=== PATIENT | female | born 1990 ===

== ENCOUNTER 2018-08-19 23:41 | Inpatient (IN) | payer OTHER ==
[2018-08-20] MEDS ORDERED: Ondansetron 4 MG/2 ML SDV IV PRN (00:10)
[2018-08-20] MEDS ORDERED: Sodium Chloride 0.9% 2.5 ML Syringe FLUSH PRN (00:10)
[2018-08-20] MEDS ORDERED: Sodium Chloride 0.9% 10 ML Syringe FLUSH PRN (00:10)
[2018-08-20] MEDS ORDERED: Sodium Chloride 0.9% 10 ML SDV IV PRN (00:10)
[2018-08-20] MEDS ORDERED: Lidocaine 1% 50 ML MDV INJECT PRN (00:10)
[2018-08-20] MEDS ORDERED: Misoprostol 200 MCG Tab PO PRN (00:10)
[2018-08-20] MEDS ORDERED: Tranexamic Acid 1,000 MG in Sodium Chloride 0.9% 100 ML IV PRN (00:10)
[2018-08-20] MEDS ORDERED: Butorphanol 1 MG/ML SDV IVPUSH PRN (00:10)
[2018-08-20] MEDS ORDERED: Water For Irrigation,Sterile 1,000 ML Container IRR PRN (00:10)
[2018-08-20] MEDS ORDERED: Nalbuphine 10 MG/1 ML Vial IVPUSH PRN (00:10)
[2018-08-20] MEDS ORDERED: Methylergonovine 0.2 MG/1 ML Amp IM PRN (00:10)
[2018-08-20] MEDS ORDERED: Carboprost Tromethamine 250 MCG/1 ML Amp IM PRN (00:10)
[2018-08-20] MEDS ORDERED: Oxytocin/0.9 % Sodium Chloride 30 UNIT/500 ML BAG IV SCH ×2 (00:15→08:15)
--- NOTE | 2018-08-20 08:06 | PCM.LDHP ---
L&D History of Present Illness - General Date of Service: 08/20/18 Admit Problem/Dx: Patient Status Order with Admit Dx/Problem 08/20/18 00:40 Patient Status [ADT] Routine Admission Diagnosis/Problem Admission Diagnosis/Problem 08/20/18 08:01 27yo 09/29/2018 38 5/7wks Comes due to SROM on 08/19/2018 @2100. A+, RI, GBS neg. Source of Information: Patient History Limitations: Reports: No Limitations - History of Present Illness Timing/Duration: Reports: minutes: Location, : Reports: Abdomen Quality: Reports: Ache, Throbbing Severity: Moderate Improves with: Reports: None Worsens with: Reports: None Associated Symptoms: Reports: N - Related Data Allergies/Adverse Reactions: Allergies Allergy/AdvReac Type Severity Reaction Status Date / Time No Known Allergies Allergy Verified 08/20/18 00:09 Home Medications: Home Meds PNV95/Ferrous Fumarate/FA [ Tablet] 1 tab PO DAILY 08/20/18 [History] Sertraline HCl 150 mg PO DAILY 08/20/18 [History] Past Medical History HEENT History: Reports: Impaired Vision Gastrointestinal History: Reports: None 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: Musculoskeletal History: Reports: None Psychiatric History: Reports: Depression - Past Surgical History HEENT Surgical History: Reports: Adenoidectomy, Tonsillectomy GI Surgical History: Reports: Cholecystectomy Musculoskeletal Surgical History: Reports: Arthroscopic Procedure Social & Family History - Family History Cardiac: Reports: Hypertension OBGYN: Reports: Oncologic: Reports: Skin - Tobacco Use Smoking Status *Q: Never Smoker - Caffeine Use Caffeine Use: Reports: None - Recreational Drug Use Recreational Drug Use: No H&P Review of Systems - Review of Systems: Review Of Systems: See Below General: Reports: No Symptoms HEENT: Reports: No Symptoms Pulmonary: Reports: No Symptoms Cardiovascular: Reports: No Symptoms Gastrointestinal: Reports: No Symptoms Genitourinary: Reports: No Symptoms Musculoskeletal: Reports: No Symptoms Skin: Reports: No Symptoms Psychiatric: Reports: No Symptoms Neurological: Reports: No Symptoms Hematologic/Lymphatic: Reports: No Symptoms Immunologic: Reports: No Symptoms L&D Exam - Exam Exam: See Below - Vital Signs Weight: 132.903 kg - OB Specific Contraction Intensity: Moderate Movement: Active Heart Tones: Present Heart Tones per Min: 145 Heart Rate (FHR) Variability: Moderate (6-25 bmp) Presentation: Vertex - Kaba Score Kaba Score Cervix Position: Midposition Kaba Score Consistency: Soft Kaba Score Effacement: >80% Kaba Score Dilation: 3-4 cm Kaba Score Infant's Station: -2 Kaba Score Total: 9 - Exam General: Alert, Oriented, Cooperative HEENT: Hearing Intact Lungs: Normal Respiratory Effort GI/Abdominal Exam: Soft, Non-Tender Rectal Exam: Deferred Genitourinary: Normal external exam, Normal bimanual exam, Cervical dilitation, Cervical fluid Back Exam: Normal Inspection Extremities: Normal Inspection, Normal Range of Motion, Non-Tender, No Pedal Edema Skin: Warm, Dry, Intact Neurological: Cranial Nerves Intact, Reflexes Equal Bilateral, Strength Equal Bilateral, Normal Gait, Normal Speech, Normal Tone, Sensation Intact Psychiatric: Alert, Normal Affect, Normal Mood - Patient Data Lab Results Last 24 hrs: Laboratory Results - last 24 hr 08/19/18 08/20/18 08/20/18 Range/Units 23:30 00:20 00:20 WBC 9.33 (4.0-11.0) K/uL RBC 3.91 L (4.30-5.90) M/uL Hgb 11.4 L (12.0-16.0) g/dL Hct 33.8 L (36.0-46.0) % MCV 86.4 (80.0-98.0) fL MCH 29.2 (27.0-32.0) pg MCHC 33.7 (31.0-37.0) g/dL RDW Std Deviation 43.7 (28.0-62.0) fl RDW Coeff of Joslyn 14 (11.0-15.0) % Plt Count 206 (150-400) K/uL MPV 10.40 (7.40-12.00) fL Membrane Rupture POSITIVE Blood Type A POSITIVE Antibody Screen NEGATIVE Result Diagrams: 08/20/18 00:20 - Problem List (1) Supervision of normal IUP (intrauterine ) in multigravida SNOMED Code(s): 927213867, 407539485, 453607918 ICD Code: Z34.80 - ENCOUNTER FOR SUPRVSN OF NORMAL , UNSP TRIMESTER Status: Acute Priority: High Current Visit: Yes Qualifiers: Trimester: third trimester Qualified Code(s): Z34.83 - Encounter for supervision of other normal , third trimester (2) SROM (spontaneous rupture of membranes) SNOMED Code(s): 983235881 ICD Code: [id number] - Status: Acute Priority: High Current Visit: Yes Problem List Initiated/Reviewed/Updated: Yes Orders Last 24hrs: Active Orders 24 hr Category Date Time Status Patient Status [ADT] Routine ADT 08/20/18 00:40 Active May Shower [RC] ASDIRECTED Care 08/20/18 00:40 Active Notify Provider [RC] PRN Care 08/20/18 00:40 Active Up ad Racheal [RC] ASDIRECTED Care 08/20/18 00:40 Active Vital Signs [RC] PER UNIT ROUTINE Care 08/20/18 00:40 Active Butorphanol [Stadol] Med 08/20/18 00:10 Active 1 mg IVPUSH Q1H PRN Carboprost Tromethamine [Hemabate DS] Med 08/20/18 00:10 Active 250 mcg IM ASDIRECTED PRN Lactated Ringers [Ringers, Lactated] 1,000 ml Med 08/20/18 00:15 Active IV ASDIRECTED Lidocaine 1% [Xylocaine 1%] Med 08/20/18 00:10 Active 50 ml INJECT ONETIME PRN Methylergonovine [Methergine] Med 08/20/18 00:10 Active 0.2 mg IM ASDIRECTED PRN Nalbuphine [Nubain] Med 08/20/18 00:10 Active 10 mg IVPUSH Q1H PRN Ondansetron [Zofran] Med 08/20/18 00:10 Active 4 mg IV Q6H PRN Oxytocin/0.9 % Sodium Chloride [Oxytocin 30 Unit/500 ML Med 08/20/18 00:15 Active -NS] 30 unit in 500 ml IV TITRATE Sodium Chloride 0.9% [Normal Saline] Med 08/20/18 00:10 Active 10 ml IV ASDIRECTED PRN Sodium Chloride 0.9% [Saline Flush] Med 08/20/18 00:10 Active 10 ml FLUSH ASDIRECTED PRN Sodium Chloride 0.9% [Saline Flush] Med 08/20/18 00:10 Active 2.5 ml FLUSH ASDIRECTED PRN Tranexamic Acid [Cyklokapron] 1,000 mg Med 08/20/18 00:10 Active Sodium Chloride 0.9% [Normal Saline] 100 ml IV ONETIME Water For Irrigation,Sterile [Sterile Water for Med 08/20/18 00:10 Active Irrigation] 1,000 ml IRR ASDIRECTED PRN miSOPROStol [Cytotec] Med 08/20/18 00:10 Active 200 mcg PO ONETIME PRN Scalp Electrode [WOMSER] Per Unit Routine Oth 08/20/18 00:40 Ordered Peripheral IV Insertion Adult [OM.PC] Routine Oth 08/20/18 00:40 Ordered Resuscitation Status Routine Resus Stat 08/20/18 00:10 Ordered Medication Orders Butorphanol Tartrate (Stadol) 1 mg IVPUSH Q1H PRN PRN Reason: Pain Carboprost Tromethamine (Hemabate Ds) 250 mcg IM ASDIRECTED PRN PRN Reason: Post Hemorrhage Lactated Ringer's (Ringers, Lactated) 1,000 mls @ 150 mls/hr IV ASDIRECTED NORM Oxytocin/Sodium Chloride (Oxytocin 30 Unit/500 Ml-Ns) 30 unit in 500 mls @ 999 mls/hr IV TITRATE NORM Tranexamic Acid 1,000 mg/ (Sodium Chloride) 110 mls @ 660 mls/hr IV ONETIME PRN PRN Reason: Bleeding Lidocaine HCl (Xylocaine 1%) 50 ml INJECT ONETIME PRN PRN Reason: Laceration repair Methylergonovine Maleate (Methergine) 0.2 mg IM ASDIRECTED PRN PRN Reason: Post Hemorrhage Misoprostol (Cytotec) 200 mcg PO ONETIME PRN PRN Reason: Post Hemorrhage Nalbuphine HCl (Nubain) 10 mg IVPUSH Q1H PRN PRN Reason: Pain (severe 7-10) Ondansetron HCl (Zofran) 4 mg IV Q6H PRN PRN Reason: Nausea/Vomiting Sodium Chloride (Saline Flush) 10 ml FLUSH ASDIRECTED PRN PRN Reason: Keep Vein Open Sodium Chloride (Saline Flush) 2.5 ml FLUSH ASDIRECTED PRN PRN Reason: Keep Vein Open Sodium Chloride (Normal Saline) 10 ml IV ASDIRECTED PRN PRN Reason: IV Use Sterile Water (Sterile Water For Irrigation) 1,000 ml IRR ASDIRECTED PRN PRN Reason: delivery Assessment/Plan Comment:: Labor/SROM A: 27yo 09/29/2018 38 5/7wks Comes due to SROM on 08/19/2018 @2100. A+, RI , GBS neg. P: Admit, epidural prn, anticipate , Dr Sousa updated
[2018-08-20] MEDS ORDERED: Terbutaline 1 MG/ML SDV SUBCUT PRN (08:07)
[2018-08-20] MEDS: Lactated Ringers 1,000 ML IV SCH ×4 (08:30→14:31)
--- NOTE | 2018-08-20 12:03 | PCM.PREANE ---
Preanesthetic Assessment - Anesthesia/Transfusion/Family Hx Anesthesia History: Prior Anesthesia Without Reaction Family History of Anesthesia Reaction: No Transfusion History: No Prior Transfusion(s) - Review of Systems General: No Symptoms Pulmonary: No Symptoms Cardiovascular: No Symptoms Gastrointestinal: No Symptoms Neurological: No Symptoms Other: Reports: None - Physical Assessment NPO Status Date: 08/20/18 NPO Status Time: 08:00 Height: 6 ft Weight: 132.903 kg ASA Class: 2E Mental Status: Alert & Oriented x3 Airway Class: Mallampati = 1 Dentition: Reports: Normal Dentition Thyro-Mental Finger Breadths: 3 ROM/Head Extension: Full Lungs: Clear to Auscultation, Normal Respiratory Effort Cardiovascular: Regular Rate - Lab Values: Laboratory Last Values WBC 9.33 K/uL (4.0-11.0) 08/20/18 00:20 RBC 3.91 M/uL (4.30-5.90) L 08/20/18 00:20 Hgb 11.4 g/dL (12.0-16.0) L 08/20/18 00:20 Hct 33.8 % (36.0-46.0) L 08/20/18 00:20 MCV 86.4 fL (80.0-98.0) 08/20/18 00:20 MCH 29.2 pg (27.0-32.0) 08/20/18 00:20 MCHC 33.7 g/dL (31.0-37.0) 08/20/18 00:20 RDW Std Deviation 43.7 fl (28.0-62.0) 08/20/18 00:20 RDW Coeff of Joslyn 14 % (11.0-15.0) 08/20/18 00:20 Plt Count 206 K/uL (150-400) 08/20/18 00:20 MPV 10.40 fL (7.40-12.00) 08/20/18 00:20 Membrane Rupture POSITIVE 08/19/18 23:30 Blood Type A POSITIVE 08/20/18 00:20 Antibody Screen NEGATIVE 08/20/18 00:20 - Allergies Allergies/Adverse Reactions: Allergies Allergy/AdvReac Type Severity Reaction Status Date / Time No Known Allergies Allergy Verified 08/20/18 00:09 - Acknowledgements Anesthesia Type Planned: Epidural Pt an Appropriate Candidate for the Planned Anesthesia: Yes Alternatives and Risks of Anesthesia Discussed w Pt/Guardian: Yes Pt/Guardian Understands and Agrees with Anesthesia Plan: Yes PreAnesthesia Questionnaire HEENT History: Reports: Impaired Vision Gastrointestinal History: Reports: None 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: Musculoskeletal History: Reports: None Psychiatric History: Reports: Depression - Past Surgical History HEENT Surgical History: Reports: Adenoidectomy, Tonsillectomy GI Surgical History: Reports: Cholecystectomy Musculoskeletal Surgical History: Reports: Arthroscopic Procedure - SUBSTANCE USE Smoking Status *Q: Never Smoker Recreational Drug Use History: No - HOME MEDS Home Medications: Home Meds PNV95/Ferrous Fumarate/FA [ Tablet] 1 tab PO DAILY 08/20/18 [History] Sertraline HCl 150 mg PO DAILY 08/20/18 [History] - CURRENT (IN HOUSE) MEDS Current Meds: Current Medications Butorphanol Tartrate (Stadol) 1 mg IVPUSH Q1H PRN PRN Reason: Pain Carboprost Tromethamine (Hemabate Ds) 250 mcg IM ASDIRECTED PRN PRN Reason: Post Hemorrhage Lactated Ringer's (Ringers, Lactated) 1,000 mls @ 150 mls/hr IV ASDIRECTED NORM Last Admin: 08/20/18 12:00 Dose: 500 mls/hr Oxytocin/Sodium Chloride (Oxytocin 30 Unit/500 Ml-Ns) 30 unit in 500 mls @ 999 mls/hr IV TITRATE NORM Tranexamic Acid 1,000 mg/ (Sodium Chloride) 110 mls @ 660 mls/hr IV ONETIME PRN PRN Reason: Bleeding Oxytocin/Sodium Chloride (Oxytocin 30 Unit/500 Ml-Ns) 30 unit in 500 mls @ 2 mls/hr IV TITRATE NORM; Protocol Last Admin: 08/20/18 08:40 Dose: 2 munits/min, 2 mls/hr Lidocaine HCl (Xylocaine 1%) 50 ml INJECT ONETIME PRN PRN Reason: Laceration repair Methylergonovine Maleate (Methergine) 0.2 mg IM ASDIRECTED PRN PRN Reason: Post Hemorrhage Misoprostol (Cytotec) 200 mcg PO ONETIME PRN PRN Reason: Post Hemorrhage Nalbuphine HCl (Nubain) 10 mg IVPUSH Q1H PRN PRN Reason: Pain (severe 7-10) Ondansetron HCl (Zofran) 4 mg IV Q6H PRN PRN Reason: Nausea/Vomiting Sodium Chloride (Saline Flush) 10 ml FLUSH ASDIRECTED PRN PRN Reason: Keep Vein Open Sodium Chloride (Saline Flush) 2.5 ml FLUSH ASDIRECTED PRN PRN Reason: Keep Vein Open Sodium Chloride (Normal Saline) 10 ml IV ASDIRECTED PRN PRN Reason: IV Use Sterile Water (Sterile Water For Irrigation) 1,000 ml IRR ASDIRECTED PRN PRN Reason: delivery Terbutaline Sulfate (Brethine) 0.25 mg SUBCUT ASDIRECTED PRN PRN Reason: Tacysystole Discontinued Medications Fentanyl/Bupivacaine HCl (Umibmglc-Jsrlc-Zu 2 Mcg/Ml-0.125%) Confirm Administered Dose 100 mls @ as directed .ROUTE .[facility] ONE Stop: 08/20/18 11:34
[2018-08-20] MEDS ORDERED: fentaNYL 100 MCG/2 ML SDV ONE (12:43)
[2018-08-20] MEDS ORDERED: Bupivacaine 0.5% 10 ML SDV ONE (12:43)
--- NOTE | 2018-08-20 13:10 | PCM.SN ---
- Free Text/Narrative Note: Anesthesia Note: [id number] Pt states that pain is "a high number" on her left side. She has been positioned with her left side down approx 5 min prior. She states her right side is completely numb, but that she can feel everything on her left. Pt speaks normally thru contractions. 3 mL of 0.5% Bupiv and 100 mcg Fent given via Epidural cath. Will wait 15 min and reevaluate. Upon reevaluation, pt states "there's really no difference." However, pt is sitting with a smile on her face thru contractions. When this is pointed out to her she then keeps comparing it to her "very numb" R leg and then begins to understand we do not want it to be that numb, we just want her to be free from pain, which she now states she is. Increased epidural rate to 11 mL/hr and bolus to 10ml q 15 min. Pt educated and verbalizes understanding.
[2018-08-20] MEDS ORDERED: Benzocaine/Menthol 20%-0.5% Spray 78 GM Cannister TOP PRN (16:59)
[2018-08-20] MEDS ORDERED: oxyCODONE 5 MG Tab PO PRN (16:59)
[2018-08-20] MEDS ORDERED: Witch Hazel Medicated Pads 40/Jar TOP PRN (16:59)
[2018-08-20] MEDS ORDERED: Acetaminophen 500 MG Tab PO PRN ×2 (16:59)
[2018-08-20] MEDS ORDERED: Lanolin 100% Cream 7 GM Tube TOP PRN (16:59)
[2018-08-20] MEDS ORDERED: Docusate Sodium 100 MG Cap PO PRN (16:59)
[2018-08-20] MEDS ORDERED: Bisacodyl 10 MG Supp RECTAL PRN (16:59)
[2018-08-20] MEDS ORDERED: Ibuprofen 400 MG Tab PO PRN (16:59)
--- NOTE | 2018-08-20 17:06 | PCM.DEL ---
L & D Note - General Info Date of Service: 08/20/18 Mother's Due Date: 09/29/18 - Delivery Note Labor: Spontaneous, Augmented by Oxytocin Delivery Outcome: Livebirth Infant Delivery Method: Spontaneous Vaginal Delivery-Single Infant Delivery Mode: Spontaneous Presentation: Vertex Nuchal Cord: Present Anesthesia Type: Epidural Episiotomy Type: None Laceration: 1st Degree, Vaginal Suture type: Vicryl Suture size: 3-0 Placenta: Intact, Spontaneous Cord: 3 Vessels Estimated Blood Loss: 100 Resuscitation Needed: No [place]: Stimulated Score 1 min: 8 Score 5 min: 9 Second Stage Interventions: Reports: Pushing, Pulls Own Legs Back Delivery Comments (Free Text/Narrative):: of viable female, Head delivered with good pushing, nuchal x1 reduced over head, shoulders and body followed easily. to mothers abd with spon cry, RN at for evaluation. Delayed cord clamping. Pitocin to IVF. Cord clamped and cut by FOB. Cord blood collected. Placenta delivered grossly intact, 3VC. Inspection noted 1st deg vaginal lac that was repaired with 3-0 chaparrita in the usual manor. EBL 100cc. APGARS 8/9, Wt: 6lb 13oz. MOther and baby left in stable condition for recovery. Induction Criteria - Augmentation Estimated Pelvis: Reports: Adequate Weight Estimated:: Reports: AGA Reassuring Monitoring Strip: Yes Absence of Tachy Systole: Yes - General Info Date of Service: 08/20/18 Admission Dx/Problem (Free Text): Patient Status Order with Admit Dx/Problem 08/20/18 00:40 Patient Status [ADT] Routine Admission Diagnosis/Problem Admission Diagnosis/Problem 08/20/18 08:01 27yo 09/29/2018 38 5/7wks Comes due to SROM on 08/19/2018 @2100. A+, RI, GBS neg. Functional Status: Reports: Pain Controlled - Review of Systems General: Reports: No Symptoms HEENT: Reports: No Symptoms Pulmonary: Reports: No Symptoms Cardiovascular: Reports: No Symptoms Gastrointestinal: Reports: No Symptoms Genitourinary: Reports: No Symptoms Musculoskeletal: Reports: No Symptoms Skin: Reports: No Symptoms Neurological: Reports: No Symptoms Psychiatric: Reports: No Symptoms - Patient Data Weight - Most Recent: 132.903 kg I&O - Last 24 Hours: Intake & Output 08/20/18 08/20/18 08/20/18 06:59 14:59 22:59 Output Total 1180 Balance -1180 Lab Results Last 24 Hours: Laboratory Results - last 24 hr 08/19/18 08/20/18 08/20/18 Range/Units 23:30 00:20 00:20 WBC 9.33 (4.0-11.0) K/uL RBC 3.91 L (4.30-5.90) M/uL Hgb 11.4 L (12.0-16.0) g/dL Hct 33.8 L (36.0-46.0) % MCV 86.4 (80.0-98.0) fL MCH 29.2 (27.0-32.0) pg MCHC 33.7 (31.0-37.0) g/dL RDW Std Deviation 43.7 (28.0-62.0) fl RDW Coeff of Joslyn 14 (11.0-15.0) % Plt Count 206 (150-400) K/uL MPV 10.40 (7.40-12.00) fL Membrane Rupture POSITIVE Blood Type A POSITIVE Antibody Screen NEGATIVE Med Orders - Current: Current Medications Acetaminophen (Tylenol Extra Strength) 500 mg PO Q4H PRN PRN Reason: Pain Acetaminophen (Tylenol Extra Strength) 1,000 mg PO Q4H PRN PRN Reason: Pain Benzocaine/Menthol (Dermoplast Pain Relief 20%-0.5% Max) 78 gm TOP ASDIRECTED PRN PRN Reason: Perineal Comfort Measure Bisacodyl (Dulcolax) 10 mg RECTAL ONETIME PRN PRN Reason: Constipation Docusate Sodium (Colace) 100 mg PO BID PRN PRN Reason: Constipation Emollient Ointment (Lansinoh Hpa) 0 gm TOP ASDIRECTED PRN PRN Reason: Sore Nipples Ibuprofen (Motrin) 400 mg PO Q4H PRN PRN Reason: Pain Ibuprofen (Motrin) 800 mg PO Q6H PRN PRN Reason: Pain Oxycodone HCl (Oxycodone) 5 mg PO Q2H PRN PRN Reason: Pain Witch Sudha (Tucks) 1 pad TOP ASDIRECTED PRN PRN Reason: comfort care Discontinued Medications Bupivacaine HCl (Sensorcaine-Mpf 0.5%) Confirm Administered Dose 10 ml .ROUTE .[facility] ONE Stop: 08/20/18 12:44 Butorphanol Tartrate (Stadol) 1 mg IVPUSH Q1H PRN PRN Reason: Pain Carboprost Tromethamine (Hemabate Ds) 250 mcg IM ASDIRECTED PRN PRN Reason: Post Hemorrhage Fentanyl (Sublimaze) Confirm Administered Dose 100 mcg .ROUTE .[facility] ONE Stop: 08/20/18 12:44 Lactated Ringer's (Ringers, Lactated) 1,000 mls @ 150 mls/hr IV ASDIRECTED NORM Last Admin: 08/20/18 14:31 Dose: 150 mls/hr Oxytocin/Sodium Chloride (Oxytocin 30 Unit/500 Ml-Ns) 30 unit in 500 mls @ 999 mls/hr IV TITRATE NORM Tranexamic Acid 1,000 mg/ (Sodium Chloride) 110 mls @ 660 mls/hr IV ONETIME PRN PRN Reason: Bleeding Oxytocin/Sodium Chloride (Oxytocin 30 Unit/500 Ml-Ns) 30 unit in 500 mls @ 2 mls/hr IV TITRATE [facility]; Protocol Last Titration: 08/20/18 13:11 Dose: 8 munits/min, 8 mls/hr Fentanyl/Bupivacaine HCl (Umxwmohj-Ntzpo-Hx 2 Mcg/Ml-0.125%) Confirm Administered Dose 100 mls @ as directed .ROUTE .[facility] ONE Stop: 08/20/18 11:34 Lidocaine HCl (Xylocaine 1%) 50 ml INJECT ONETIME PRN PRN Reason: Laceration repair Methylergonovine Maleate (Methergine) 0.2 mg IM ASDIRECTED PRN PRN Reason: Post Hemorrhage Misoprostol (Cytotec) 200 mcg PO ONETIME PRN PRN Reason: Post Hemorrhage Nalbuphine HCl (Nubain) 10 mg IVPUSH Q1H PRN PRN Reason: Pain (severe 7-10) Ondansetron HCl (Zofran) 4 mg IV Q6H PRN PRN Reason: Nausea/Vomiting Sodium Chloride (Saline Flush) 10 ml FLUSH ASDIRECTED PRN PRN Reason: Keep Vein Open Sodium Chloride (Saline Flush) 2.5 ml FLUSH ASDIRECTED PRN PRN Reason: Keep Vein Open Sodium Chloride (Normal Saline) 10 ml IV ASDIRECTED PRN PRN Reason: IV Use Sterile Water (Sterile Water For Irrigation) 1,000 ml IRR ASDIRECTED PRN PRN Reason: delivery Terbutaline Sulfate (Brethine) 0.25 mg SUBCUT ASDIRECTED PRN PRN Reason: Tacysystole - Exam General: Alert, Oriented, Cooperative Lungs: Normal Respiratory Effort GI/Abdominal Exam: Soft, Non-Tender (Female) Exam: Normal External Exam, Normal Bimanual Exam, Vaginal Bleeding Back Exam: Normal Inspection Extremities: Normal Inspection, No Pedal Edema Skin: Warm, Dry, Intact Wound/Incisions: Healing Well Neurological: No New Focal Deficit, Normal Speech, Normal Tone Psy/Mental Status: Alert, Normal Affect, Normal Mood - Problem List & Annotations (1) Supervision of normal IUP (intrauterine ) in multigravida SNOMED Code(s): 828672725, 333351225, 018904486 Code(s): Z34.80 - ENCOUNTER FOR SUPRVSN OF NORMAL , UNSP TRIMESTER Status: Acute Priority: High Current Visit: Yes Qualifiers: Trimester: third trimester Qualified Code(s): Z34.83 - Encounter for supervision of other normal , third trimester (2) SROM (spontaneous rupture of membranes) SNOMED Code(s): 606191119 Code(s): EHQ7358 - Status: Acute Priority: High Current Visit: Yes (3) (normal spontaneous vaginal delivery) SNOMED Code(s): 94731011 Code(s): O80 - ENCOUNTER FOR FULL-TERM UNCOMPLICATED DELIVERY Status: Acute Priority: High Current Visit: Yes - Problem List Review Problem List Initiated/Reviewed/Updated: Yes - My Orders Last 24 Hours: My Active Orders 08/20/18 08:08 Bedrest Bathroom Privileges [RC] ASDIRECTED Communication Order [RC] ASDIRECTED Communication Order [RC] ASDIRECTED Notify Provider [RC] PRN Notify Provider [RC] STAT Oxygen Therapy [RC] ASDIRECTED Vaginal Exam [RC] PRN Vital Signs [RC] PER UNIT ROUTINE 08/20/18 13:38 Ready for Discharge [RC] PER UNIT ROUTINE 08/20/18 16:59 Acetaminophen [Tylenol Extra Strength] 1,000 mg PO Q4H PRN Acetaminophen [Tylenol Extra Strength] 500 mg PO Q4H PRN Benzocaine/Menthol [Dermoplast Pain Relief 20%-0.5% Max] 78 gm TOP ASDIRECTED PRN Bisacodyl [Dulcolax] 10 mg RECTAL ONETIME PRN Docusate Sodium [Colace] 100 mg PO BID PRN Ibuprofen [Motrin] 400 mg PO Q4H PRN Ibuprofen [Motrin] 800 mg PO Q6H PRN Lanolin [Lansinoh HPA] See Dose Instructions TOP ASDIRECTED PRN Witch Sudha [Tucks] 1 pad TOP ASDIRECTED PRN oxyCODONE 5 mg PO Q2H PRN Resuscitation Status Routine 08/20/18 17:00 Patient Status [ADT] Routine May Shower [RC] ASDIRECTED Up ad Racheal [RC] ASDIRECTED Vital Signs [RC] PER UNIT ROUTINE Assess Lochia [WOMSER] Per Unit Routine Assess Uterine Involution [WOMSER] Per Unit Routine Peripheral IV Discontinue [OM.PC] Routine 08/20/18 Dinner Regular Diet [DIET] - Plan Plan:: Labor/SROM A: 27yo 09/29/2018 38 5/7wks Comes due to SROM on 08/19/2018 @2100. A+, RI , GBS neg. P: Admit, epidural prn, anticipate , Dr Sousa updated Delivery A: viable female, APGARS 8/9, Wt: 6lb 13oz. EBL 100cc. 1st deg lac w/ repair. mother and baby stable P: Routine pp plan of care
[2018-08-20] MEDS: Ibuprofen 800 MG Tab PO PRN (20:31)
[2018-08-21] MEDS: Ibuprofen 800 MG Tab PO PRN ×3 (05:10→19:21)
--- NOTE | 2018-08-21 05:38 | PCM48HPAN ---
Post Anesthesia Note - EVALUATION WITHIN 48HRS OF ANESTHETIC Vital Signs in Normal Range: Yes Patient Participated in Evaluation: Yes Respiratory Function Stable: Yes Airway Patent: Yes Cardiovascular Function Stable: Yes Hydration Status Stable: Yes Pain Control Satisfactory: Yes Nausea and Vomiting Control Satisfactory: Yes Mental Status Recovered: Yes Resp Rate: 16
--- NOTE | 2018-08-21 09:48 | PCM.PNPP ---
- General Info Date of Service: 08/21/18 Functional Status: Reports: Pain Controlled - Review of Systems General: Reports: No Symptoms HEENT: Reports: No Symptoms Pulmonary: Reports: No Symptoms Cardiovascular: Reports: No Symptoms Gastrointestinal: Reports: No Symptoms Genitourinary: Reports: No Symptoms Musculoskeletal: Reports: No Symptoms Skin: Reports: No Symptoms Neurological: Reports: No Symptoms Psychiatric: Reports: No Symptoms - General Info Date of Service: 08/21/18 - Patient Data Vital Signs - Most Recent: Last Vital Signs Temp 36.7 C 08/21/18 07:05 Pulse 70 08/21/18 07:05 Resp 16 08/21/18 07:05 BP 96/52 L 08/21/18 07:05 Pulse Ox 96 08/21/18 07:05 Weight - Most Recent: 132.903 kg I&O - Last 24 Hours: Intake & Output 08/20/18 08/21/18 08/21/18 22:59 06:59 14:59 Output Total 1180 Balance -1180 Med Orders - Current: Current Medications Acetaminophen (Tylenol Extra Strength) 500 mg PO Q4H PRN PRN Reason: Pain Acetaminophen (Tylenol Extra Strength) 1,000 mg PO Q4H PRN PRN Reason: Pain Benzocaine/Menthol (Dermoplast Pain Relief 20%-0.5% [place]) 78 gm TOP ASDIRECTED PRN PRN Reason: Perineal Comfort Measure Last Admin: 08/20/18 19:38 Dose: 1 applic Bisacodyl (Dulcolax) 10 mg RECTAL ONETIME PRN PRN Reason: Constipation Docusate Sodium (Colace) 100 mg PO BID PRN PRN Reason: Constipation Last Admin: 08/20/18 20:31 Dose: 100 mg Emollient Ointment (Lansinoh Hpa) 0 gm TOP ASDIRECTED PRN PRN Reason: Sore Nipples Last Admin: 08/20/18 19:39 Dose: 1 applic Ibuprofen (Motrin) 400 mg PO Q4H PRN PRN Reason: Pain Ibuprofen (Motrin) 800 mg PO Q6H PRN PRN Reason: Pain Last Admin: 08/21/18 05:10 Dose: 800 mg Oxycodone HCl (Oxycodone) 5 mg PO Q2H PRN PRN Reason: Pain Witch Sudha (Tucks) 1 pad TOP ASDIRECTED PRN PRN Reason: comfort care Last Admin: 08/20/18 19:38 Dose: 1 applicful Discontinued Medications Bupivacaine HCl (Sensorcaine-Mpf 0.5%) Confirm Administered Dose 10 ml .ROUTE .STK-MED ONE Stop: 08/20/18 12:44 Last Admin: 08/21/18 03:11 Dose: Not Given Butorphanol Tartrate (Stadol) 1 mg IVPUSH Q1H PRN PRN Reason: Pain Carboprost Tromethamine (Hemabate Ds) 250 mcg IM ASDIRECTED PRN PRN Reason: Post Hemorrhage Fentanyl (Sublimaze) Confirm Administered Dose 100 mcg .ROUTE .Confidex-MED ONE Stop: 08/20/18 12:44 Last Admin: 08/21/18 03:11 Dose: Not Given Lactated Ringer's (Ringers, Lactated) 1,000 mls @ 150 mls/hr IV ASDIRECTED NORM Last Admin: 08/20/18 14:31 Dose: 150 mls/hr Oxytocin/Sodium Chloride (Oxytocin 30 Unit/500 Ml-Ns) 30 unit in 500 mls @ 999 mls/hr IV TITRATE NORM Tranexamic Acid 1,000 mg/ (Sodium Chloride) 110 mls @ 660 mls/hr IV ONETIME PRN PRN Reason: Bleeding Oxytocin/Sodium Chloride (Oxytocin 30 Unit/500 Ml-Ns) 30 unit in 500 mls @ 2 mls/hr IV TITRATE NORM; Protocol Last Titration: 08/20/18 13:11 Dose: 8 munits/min, 8 mls/hr Fentanyl/Bupivacaine HCl (Vitwhkzq-Tquwy-Wz 2 Mcg/Ml-0.125%) Confirm Administered Dose 100 mls @ as directed .ROUTE .Confidex-MED ONE Stop: 08/20/18 11:34 Last Admin: 08/21/18 03:11 Dose: Not Given Lidocaine HCl (Xylocaine 1%) 50 ml INJECT ONETIME PRN PRN Reason: Laceration repair Methylergonovine Maleate (Methergine) 0.2 mg IM ASDIRECTED PRN PRN Reason: Post Hemorrhage Misoprostol (Cytotec) 200 mcg PO ONETIME PRN PRN Reason: Post Hemorrhage Nalbuphine HCl (Nubain) 10 mg IVPUSH Q1H PRN PRN Reason: Pain (severe 7-10) Ondansetron HCl (Zofran) 4 mg IV Q6H PRN PRN Reason: Nausea/Vomiting Sodium Chloride (Saline Flush) 10 ml FLUSH ASDIRECTED PRN PRN Reason: Keep Vein Open Sodium Chloride (Saline Flush) 2.5 ml FLUSH ASDIRECTED PRN PRN Reason: Keep Vein Open Sodium Chloride (Normal Saline) 10 ml IV ASDIRECTED PRN PRN Reason: IV Use Sterile Water (Sterile Water For Irrigation) 1,000 ml IRR ASDIRECTED PRN PRN Reason: delivery Terbutaline Sulfate (Brethine) 0.25 mg SUBCUT ASDIRECTED PRN PRN Reason: Tacysystole - Interaction Disposition, : in Room with Family Feeding: Attempted ; Nursed Fair/Poor Support Person: - Recovery Exam Fundal Tone: Firm Fundal Level: At Umbilicus Fundal Placement: Midline Lochia Amount: Small Lochia Color: Rubra/Red Perineum Description: Edematous Episiotomy/Laceration: Approximated Bladder Status: Voiding Urinary Elimination: Voided - Exam General: Alert, Oriented HEENT: Pupils Equal Neck: Supple Lungs: Clear to Auscultation, Normal Respiratory Effort Cardiovascular: Regular Rate, Regular Rhythm GI/Abdominal Exam: Normal Bowel Sounds, Soft, Non-Tender, No Organomegaly, No Distention, No Abnormal Bruit, No Mass, Pelvis Stable Extremities: Normal Inspection, Normal Range of Motion, Non-Tender, No Pedal Edema, Normal Capillary Refill Skin: Warm, Dry, Intact Wound/Incisions: Healing Well Neurological: No New Focal Deficit Psy/Mental Status: Alert, Normal Affect, Normal Mood - Problem List Review Problem List Initiated/Reviewed/Updated: Yes - Assessment Assessment:: Status post normal spontaneous vaginal delivery the patient is doing well she is attempting breast-feeding and we are planning to discharge her later during the day - Plan Plan:: Labor/SROM A: 27yo 09/29/2018 38 5/7wks Comes due to SROM on 08/19/2018 @2100. A+, RI , GBS neg. P: Admit, epidural prn, anticipate , Dr Sousa updated Delivery A: viable female, APGARS 8/9, Wt: 6lb 13oz. EBL 100cc. 1st deg lac w/ repair. mother and baby stable P: Routine pp plan of care
--- NOTE | 2018-08-21 09:51 | PCM.DCSUM1 ---
Discharge Summary - Hospital Course Diagnosis: Stroke: No - Discharge Data Discharge Date: 08/20/18 Discharge Disposition: Home, Self-Care 01 Condition: Good - Patient Instructions Diet: Usual Diet as Tolerated Activity: As Tolerated - Discharge Plan Home Medications: Home Meds [id number]/Ferrous Fumarate/FA [ Tablet] 1 tab PO DAILY 08/20/18 [History] Sertraline HCl 150 mg PO DAILY 08/20/18 [History] Patient Handouts: Third Trimester of , [id number] Referrals: [facility] [Outside] Channing Sousa MD [Physician] - 10/01/18 9:30 am (6 week post ) - Discharge Summary/Plan Comment DC Time >30 min.: Yes - General Info Date of Service: 08/21/18 Functional Status: Reports: Pain Controlled - Review of Systems General: Reports: No Symptoms HEENT: Reports: No Symptoms Pulmonary: Reports: No Symptoms Cardiovascular: Reports: No Symptoms Gastrointestinal: Reports: No Symptoms Genitourinary: Reports: No Symptoms Musculoskeletal: Reports: No Symptoms Skin: Reports: No Symptoms Neurological: Reports: No Symptoms Psychiatric: Reports: No Symptoms - Patient Data Vitals - Most Recent: Last Vital Signs Temp 36.7 C 08/21/18 07:05 Pulse 70 08/21/18 07:05 Resp 16 08/21/18 07:05 BP 96/52 L 08/21/18 07:05 Pulse Ox 96 08/21/18 07:05 Weight - Most Recent: 132.903 kg I&O - Last 24 hours: Intake & Output 08/20/18 08/21/18 08/21/18 22:59 06:59 14:59 Output Total 1180 Balance -1180 Med Orders - Current: Current Medications Acetaminophen (Tylenol Extra Strength) 500 mg PO Q4H PRN PRN Reason: Pain Acetaminophen (Tylenol Extra Strength) 1,000 mg PO Q4H PRN PRN Reason: Pain Benzocaine/Menthol (Dermoplast Pain Relief 20%-0.5% [place]) 78 gm TOP ASDIRECTED PRN PRN Reason: Perineal Comfort Measure Last Admin: 08/20/18 19:38 Dose: 1 applic Bisacodyl (Dulcolax) 10 mg RECTAL ONETIME PRN PRN Reason: Constipation Docusate Sodium (Colace) 100 mg PO BID PRN PRN Reason: Constipation Last Admin: 08/20/18 20:31 Dose: 100 mg Emollient Ointment (Lansinoh Hpa) 0 gm TOP ASDIRECTED PRN PRN Reason: Sore Nipples Last Admin: 08/20/18 19:39 Dose: 1 applic Ibuprofen (Motrin) 400 mg PO Q4H PRN PRN Reason: Pain Ibuprofen (Motrin) 800 mg PO Q6H PRN PRN Reason: Pain Last Admin: 08/21/18 05:10 Dose: 800 mg Oxycodone HCl (Oxycodone) 5 mg PO Q2H PRN PRN Reason: Pain Witch Sudha (Tucks) 1 pad TOP ASDIRECTED PRN PRN Reason: comfort care Last Admin: 08/20/18 19:38 Dose: 1 applicful Discontinued Medications Bupivacaine HCl (Sensorcaine-Mpf 0.5%) Confirm Administered Dose 10 ml .ROUTE .STK-MED ONE Stop: 08/20/18 12:44 Last Admin: 08/21/18 03:11 Dose: Not Given Butorphanol Tartrate (Stadol) 1 mg IVPUSH Q1H PRN PRN Reason: Pain Carboprost Tromethamine (Hemabate Ds) 250 mcg IM ASDIRECTED PRN PRN Reason: Post Hemorrhage Fentanyl (Sublimaze) Confirm Administered Dose 100 mcg .ROUTE .STK-MED ONE Stop: 08/20/18 12:44 Last Admin: 08/21/18 03:11 Dose: Not Given Lactated Ringer's (Ringers, Lactated) 1,000 mls @ 150 mls/hr IV ASDIRECTED NORM Last Admin: 08/20/18 14:31 Dose: 150 mls/hr Oxytocin/Sodium Chloride (Oxytocin 30 Unit/500 Ml-Ns) 30 unit in 500 mls @ 999 mls/hr IV TITRATE NORM Tranexamic Acid 1,000 mg/ (Sodium Chloride) 110 mls @ 660 mls/hr IV ONETIME PRN PRN Reason: Bleeding Oxytocin/Sodium Chloride (Oxytocin 30 Unit/500 Ml-Ns) 30 unit in 500 mls @ 2 mls/hr IV TITRATE NORM; Protocol Last Titration: 08/20/18 13:11 Dose: 8 munits/min, 8 mls/hr Fentanyl/Bupivacaine HCl (Vwivbxen-Wmslu-Dl 2 Mcg/Ml-0.125%) Confirm Administered Dose 100 mls @ as directed .ROUTE .STK-MED ONE Stop: 08/20/18 11:34 Last Admin: 08/21/18 03:11 Dose: Not Given Lidocaine HCl (Xylocaine 1%) 50 ml INJECT ONETIME PRN PRN Reason: Laceration repair Methylergonovine Maleate (Methergine) 0.2 mg IM ASDIRECTED PRN PRN Reason: Post Hemorrhage Misoprostol (Cytotec) 200 mcg PO ONETIME PRN PRN Reason: Post Hemorrhage Nalbuphine HCl (Nubain) 10 mg IVPUSH Q1H PRN PRN Reason: Pain (severe 7-10) Ondansetron HCl (Zofran) 4 mg IV Q6H PRN PRN Reason: Nausea/Vomiting Sodium Chloride (Saline Flush) 10 ml FLUSH ASDIRECTED PRN PRN Reason: Keep Vein Open Sodium Chloride (Saline Flush) 2.5 ml FLUSH ASDIRECTED PRN PRN Reason: Keep Vein Open Sodium Chloride (Normal Saline) 10 ml IV ASDIRECTED PRN PRN Reason: IV Use Sterile Water (Sterile Water For Irrigation) 1,000 ml IRR ASDIRECTED PRN PRN Reason: delivery Terbutaline Sulfate (Brethine) 0.25 mg SUBCUT ASDIRECTED PRN PRN Reason: Tacysystole - Exam General: Reports: Alert, Oriented HEENT: Reports: Pupils Equal, Pupils Reactive, EOMI, Mucous Membr. Moist/[place] Neck: Reports: Supple Lungs: Reports: Clear to Auscultation, Normal Respiratory Effort Cardiovascular: Reports: Regular Rate, Regular Rhythm GI/Abdominal Exam: Normal Bowel Sounds, Soft, Non-Tender, No Organomegaly, No Distention, No Abnormal Bruit, No Mass, Pelvis Stable (Female) Exam: Normal External Exam, Normal Speculum Exam, Normal Bimanual Exam Rectal (Female) Exam: Normal Exam, Normal Rectal Tone Back Exam: Reports: Normal Inspection, Full Range of Motion Extremities: Normal Inspection, Normal Range of Motion, Non-Tender, No Pedal Edema, Normal Capillary Refill Skin: Reports: Warm, Dry, Intact Wound/Incisions: Reports: Healing Well Neurological: Reports: No New Focal Deficit Psy/Mental Status: Reports: Alert, Normal Affect, Normal Mood
== END 2018-08-21 19:45 | disposition home or self-care (01) | DRG 806 ==
LOC: MW.OBCHECK 23:41 → MW.OB 23:43 → MW.OBCHECK 08-20 00:40 → MW.OB 08-20 00:40 → OBSVTOIN 08-20 16:47 → MW.OB 08-20 20:01
PROVIDERS: ADMIT Obstetrics & Gynecology; ATTEND Obstetrics & Gynecology
PROC: 10E0XZZ Delivery of Products of Conception, External Approach (ICD-10-PCS; principal; 2018-08-20)
PROC: 0UQGXZZ Repair Vagina, External Approach (ICD-10-PCS; principal; 2018-08-20)
PROC: 6A550ZT Pheresis of Cord Blood Stem Cells, Single (ICD-10-PCS; principal; 2018-08-20)
PROC: 3E0R3BZ Introduction of Anesthetic Agent into Spinal Canal, Percutaneous Approach (ICD-10-PCS; 2018-08-20)
PROC: 00HU33Z Insertion of Infusion Device into Spinal Canal, Percutaneous Approach (ICD-10-PCS; 2018-08-20)
DX: O99.344 Other mental disorders complicating childbirth (principal); O71.4 Obstetric high vaginal laceration alone; Z37.0 Single live birth; O69.81X0 Labor and delivery complicated by cord around neck, without compression, not applicable or unspecified; F32.9 Major depressive disorder, single episode, unspecified; Z3A.38 38 weeks gestation of pregnancy; Z79.899 Other long term (current) drug therapy; Z90.49 Acquired absence of other specified parts of digestive tract
CPT/HCPCS: 36415; 59025; 59409; 84112; 85027; 86850; 86900; 86901; A9270-GY; J2590; J3010; J3490; J7120

== ENCOUNTER 2022-01-10 03:45 | Inpatient (IN) | payer OTHER ==
[2022-01-10] MEDS ORDERED: Terbutaline 1 MG/ML SDV SUBCUT PRN (04:46)
[2022-01-10] MEDS ORDERED: Promethazine 25 MG/ML SDV IM PRN (04:49)
[2022-01-10] MEDS ORDERED: Lidocaine 1% 50 ML MDV INJECT PRN (04:49)
[2022-01-10] MEDS ORDERED: Butorphanol 1 MG/ML SDV IVPUSH PRN (04:49)
[2022-01-10] MEDS ORDERED: Sodium Chloride 0.9% 2.5 ML Syringe FLUSH PRN (04:49)
[2022-01-10] MEDS ORDERED: Sodium Chloride 0.9% 10 ML Syringe FLUSH PRN (04:49)
[2022-01-10] MEDS ORDERED: Methylergonovine 0.2 MG/1 ML Amp IM PRN (04:49)
[2022-01-10] MEDS ORDERED: Water For Irrigation,Sterile 1,000 ML Container IRR PRN (04:49)
[2022-01-10] MEDS ORDERED: Misoprostol 200 MCG Tab PO PRN (04:49)
[2022-01-10] MEDS ORDERED: Tranexamic Acid 1,000 MG in Sodium Chloride 0.9% 100 ML IV PRN (04:49)
[2022-01-10] MEDS ORDERED: Carboprost Tromethamine 250 MCG/1 ML Amp IM PRN (04:49)
[2022-01-10] MEDS ORDERED: Sodium Chloride 0.9% 20 ML SDV IV PRN (04:49)
[2022-01-10] MEDS ORDERED: Oxytocin/0.9 % Sodium Chloride 30 UNIT/500 ML BAG IV SCH ×2 (05:00)
[2022-01-10] MEDS ORDERED: Lactated Ringers 1,000 ML IV SCH (05:00)
[2022-01-10] MEDS ORDERED: Witch Hazel Medicated Pads 40/Jar TOP PRN ×2 (06:59→09:02)
[2022-01-10] MEDS ORDERED: Ibuprofen 400 MG Tab PO PRN ×2 (06:59→09:02)
[2022-01-10] MEDS ORDERED: Lanolin 100% Cream 7 GM Tube TOP PRN ×2 (06:59→09:02)
[2022-01-10] MEDS ORDERED: oxyCODONE 5 MG Tab PO PRN ×2 (06:59→09:02)
[2022-01-10] MEDS ORDERED: Benzocaine/Menthol 20%-0.5% Spray 78 GM Cannister TOP PRN ×2 (06:59→09:02)
[2022-01-10] MEDS ORDERED: Bisacodyl 10 MG Supp RECTAL PRN ×2 (06:59→09:02)
[2022-01-10] MEDS ORDERED: Acetaminophen 500 MG Tab PO PRN ×4 (06:59→09:02)
[2022-01-10] MEDS ORDERED: Ibuprofen 800 MG Tab PO PRN ×2 (06:59→09:02)
[2022-01-10] MEDS ORDERED: Docusate Sodium 100 MG Cap PO PRN (09:02)
[2022-01-10] MEDS: Docusate Sodium 100 MG Cap PO PRN (20:52)
[2022-01-11] MEDS: Docusate Sodium 100 MG Cap PO PRN (09:31)
== END 2022-01-11 12:00 | disposition home or self-care (01) | DRG 807 ==
LOC: MW.OBCHECK 03:45 → MW.OB 03:46 → MW.OBCHECK 04:49 → MW.OB 04:49 → OBSVTOIN 05:13 → MW.OB 09:17
PROVIDERS: ADMIT Obstetrics & Gynecology Obstetrics; ATTEND Obstetrics & Gynecology
PROC: 10E0XZZ Delivery of Products of Conception, External Approach (ICD-10-PCS; principal; 2022-01-10)
PROC: 0HQ9XZZ Repair Perineum Skin, External Approach (ICD-10-PCS; 2022-01-10)
PROC: 10907ZC Drainage of Amniotic Fluid, Therapeutic from Products of Conception, Via Natural or Artificial Opening (ICD-10-PCS; 2022-01-10)
DX: O99.344 Other mental disorders complicating childbirth (principal); Z37.0 Single live birth; O62.3 Precipitate labor; Z3A.38 38 weeks gestation of pregnancy; Z20.822 Contact with and (suspected) exposure to COVID-19; O99.824 Streptococcus B carrier state complicating childbirth
CPT/HCPCS: 36415; 59025; 59409; 84112; 85014; 85018; 85027; 86592; 86850; 86900; 86901; A9270-GY; J0595; J2590; J7120; U0002